=== PATIENT | female | born 1995 | race Caucasian/White ===

== ENCOUNTER 2024-01-24 18:14 | Emergency (ER) | payer OTHER, SELFPAY ==
--- NOTE | ~2024-01-24 | US_ITS ---
EXAMINATION: US VENOUS WITH DOPPLER UPPER EXTREMITY, RIGHT CLINICAL INFORMATION: Right arm swelling COMPARISON: None available. TECHNIQUE: Ultrasound of the upper extremity is performed using compression sonography and color and pulse Doppler flow with assessment of augmentation of flow. There is also imaging and Doppler assessment of the jugular and subclavian veins. Spectral analysis with color-flow imaging is performed. FINDINGS: Respiratory variation, normal compression, and augmented flow are noted throughout the upper extremity including the axillary, brachial, cubital, and radial and ulnar veins. There is normal flow in the internal jugular and subclavian veins. There is no visible deep or superficial thrombophlebitis. If the patient's symptoms progress, a followup ultrasound in 5 -7 days might be of value to exclude proximal propagation from a nonvisualized distal arm vein. US/US venous duplex UE RT IMPRESSION: No DVT demonstrated in the right upper extremity.
--- NOTE | ~2024-01-24 | CT_ITS ---
EXAMINATION: CT ANGIOGRAM RIGHT UPPER EXTREMITY CLINICAL INFORMATION: Pain, swelling COMPARISON: None available. TECHNIQUE: CT angiography of the right upper extremity following the administration of 80mL Omnipaque 350. MIPS images were created and reviewed. This CT examination was performed using dose optimization techniques as appropriate, variously including the following: *Automated exposure control *Adjustment of mA and/or kV according to patient size (this includes techniques or standardized protocols for targeted exams where dose is matched to indication/reason for exam; i.e. extremities or head) *Use of iterative reconstruction technique DLP: 632 mGy-cm FINDINGS: Vascular: The subclavian, axillary, brachial, proximal ulnar, proximal radial arteries are patent and unremarkable. The ulnar and radial arteries are not visualized past the proximal-mid forearm. Non vascular: There is diffuse subcutaneous soft tissue swelling of the forearm. CT/CT angio UE RT IMPRESSION: The ulnar and radial arteries are not visualized past the proximal-mid forearm. Patent proximally without abnormality.
--- NOTE | ~2024-01-24 | CT_ITS ---
EXAMINATION: CT CHEST WITH CONTRAST CLINICAL INFORMATION: Possible right subclavian clot COMPARISON: None available. TECHNIQUE: Multidetector volumetric CT imaging of the chest was obtained after the administration of 85 mL of Omnipaque 350 intravenous contrast without immediate adverse reactions. Axial MIP volume rendering provided. Sagittal and coronal reformatted images were obtained. This CT examination was performed using dose optimization techniques as appropriate, variously including the following: *Automated exposure control *Adjustment of mA and/or kV according to patient size (this includes techniques or standardized protocols for targeted exams where dose is matched to indication/reason for exam; i.e. extremities or head) *Use of iterative reconstruction technique DLP: 219 mGy-cm FINDINGS: LUNGS: The lungs are clear with no evidence of inflammation or nodules. VASCULAR: The thoracic aorta appears unremarkable. Three-vessel branching pattern of the arch is seen. The great vessels are widely patent. Although not carried out for the pulmonary arteries or pulmonary veins are moderately well seen. No central pulmonary emboli are present. MEDIASTINUM: The mediastinum is normal. PLEURA: There is no pleural effusion. No pleural mass or thickening. AXILLA: No lymphadenopathy. UPPER ABDOMEN: Unremarkable OSSEOUS STRUCTURES: Unremarkable. CT/CT chest w IV con IMPRESSION: 1. No evidence of a right subclavian thrombus. The right subclavian artery is widely patent. 2. No acute intrathoracic disease. Fleischner guidelines were followed.
[2024-01-24 18:16] VITALS: BP 153/94; PULSE 93; RESP 18; TEMP 36.9; O2SAT 100; BMI 27.5
--- NOTE | 2024-01-24 18:19 | ED.GENADULT ---
HPI - General Adult General Chief complaint: Extremity Problem Stated complaint: R arm swelling and tightness, DVT? Time Seen by Provider: 01/24/24 18:39 Source: patient Mode of arrival: wheelchair Limitations: no limitations History of Present Illness ED Provider: Dr. Kirk Martinez HPI narrative: 28-year-old female with a history of asthma, depression, anxiety, ADD who presents emergency department for evaluation of pain and swelling of her right arm. 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 She states that the next day her biceps felt tight and she noticed a purplish discoloration. She states that her whole arm now feels swollen and tight and is discolored compared to the left arm. She states she is having pain in her arm but she describes it as a mild dull ache which is only 2/10. The patient denied fever, chills, fatigue, chest pain, shortness of breath. The patient does take oral control pills Related Data Allergies Allergy/AdvReac Type Severity Reaction Status Date / Time No Known Allergies Allergy Verified 01/24/24 18:20 Review of Systems Review of Systems: Yes all other systems are reviewed and are negative [facility] Past Medical History [facility] Narrative: Past medical history: Asthma, depression, anxiety, ADD. Social history: She denies tobacco use. She occasionally drinks alcohol. She smokes marijuana once daily Social History Social History Advance Directives: No Advance Directives Information Provided: No Do you have a plan to hurt others: No Plan Physical Exam ED Vital Signs: Vital Signs - 24 hr 01/24/24 18:16 01/24/24 19:42 01/24/24 22:06 Temperature 98.4 F 98.5 F 98.6 F Pulse Rate 93 89 73 Respiratory Rate 18 18 16 Blood Pressure 153/94 H 156/86 H 134/79 Pulse Oximetry 100 99 99 Oxygen Delivery Method Room Air Room Air Room Air BMI result Body Mass Index 27.5 Vital signs revealed an elevated blood pressure of 153/94 otherwise unremarkable. Exam: General: Awake, alert in no distress Head: Normocephalic, atraumatic EENT: PERRL, Lids normal, sclera normal, conjunctiva normal, nose normal , ears normal, throat without erythema or exudates Neck: Supple, no adenopathy Lung: breath sounds symmetric, no wheezing, rales or rhonchi Chest: symmetric movement Heart: regular rate and rhythm, normal S1, S2 no murmurs or rubs Abdomen: soft, non-tender, nondistended, normal bowel sounds Back:no CVAT Extremities: Right upper extremity: The patient's right upper extremity is larger than the left, she has a purplish discoloration from the shoulder to the hand, she has normal radial and ulnar pulse. There is some slight tenderness palpation over the right biceps and triceps, there has no increased warmth or erythema of the extremity. Neuro: Awake, alert, oriented, normal speech Psych: Pleasant, cooperative Course Course Course Narrative: RME- 28-year-old female with past medical history significant for asthma presents for evaluation of right arm pain and swelling. Patient 1st noticed it today. She reports working in the yard yesterday and felt some shoulder discomfort last night which has since resolved. Her right arm is edematous, she has some discomfort in the triceps region. There is some discoloration to the right upper extremity. Radial pulses are 2+ and equal. Capillary refill intact. Plan for labs coags an ultrasound to rule out DVT Medications Administered Discontinued Medications Generic Name Dose Route Start Last Admin Trade Name Freq PRN Reason Stop Dose Admin Piperacillin Sod/Tazobactam 100 mls @ 200 mls/hr 01/24/24 19:23 01/24/24 21:17 Sod 4.5 gm/ Sodium Chloride IV 01/24/24 19:52 Infused ONCE ONE Infusion Clindamycin Phosphate 600 mg in 50 mls @ 100 mls/hr 01/24/24 19:23 01/24/24 21:17 Cleocin IV 01/24/24 19:52 100 mls/hr ONCE ONE Administration Sodium Chloride 1,000 mls @ 999 mls/hr 01/24/24 21:53 01/24/24 22:40 Ns IV 01/24/24 22:53 999 mls/hr .Q1H1M STA Administration Iohexol 80 ml 01/24/24 20:26 01/24/24 20:27 Iohexol 350 Mg/Ml 100 Ml Infus..Btl IV 01/24/24 20:27 80 ml ONCE ONE Administration Iohexol 85 ml 01/24/24 22:05 01/24/24 22:06 Iohexol 350 Mg/Ml 100 Ml Infus..Btl IV 01/24/24 22:06 85 ml ONCE ONE Administration Medical Decision Making Medical Decision Making MDM Narrative: 28-year-old female with a history of asthma, depression, anxiety, ADD who presents emergency department for evaluation of pain and swelling of her right arm x3 days with increased swelling, purplish discoloration and mild pain from the shoulder to the hand. Patient does not recount any injury or puncture wound to her right arm. Patient is on control pills. Vital signs did reveal an elevated blood pressure otherwise unremarkable. The patient's exam did reveal swelling of the right upper extremity compared to the left with a purplish discoloration with no increased warmth. She has good peripheral pulses. Differential diagnosis: ?Includes but is not limited to DVT, arterial clot, necrotizing fasciitis, hematoma, electrolyte abnormalities, anemia Following evaluation was ordered:. CBC, CMP, CK, D-dimer, magnesium, PTT, lactic acid, CRP, ESR, urine test, blood cultures x2, venous duplex ultrasound of the right upper extremity Course: 20:16 My interpretation patient's laboratory evaluation is as follows: [place] [id number] and a normal differential. D-dimer was elevated 311. CO2 low 20, BUN elevated 17, LFTs were normal. CK was only slightly elevated at 214. CRP elevated 1.21. Urine test was negative. ESR was normal at 11. Duplex ultrasound of the right upper extremity did not reveal a DVT. I ordered a CT scan angiogram of the right upper extremity to rule out arterial clot is possible cause of her symptoms. I did order Zosyn 4.5 g IV and clindamycin 600 mg IV to treat for possible necrotizing fasciitis/infectious process. 21:[address] angiogram of the right upper extremity did not reveal any cleared arterial blockage, the arterial study ends in the forearm and I did discuss this with the covering radiologist . She states that this result is and artifact of the technique and not secondary to an arterial clot. I am still concerned that the patient may have a venous clot and after my discussion with the covering radiologist, I ordered CT of the chest with IV contrast to evaluate the subclavian vein to see if there is a clot higher up in her venous system. I did order normal saline IV x2 L to flush under her kidneys. At the end of my shift, the CT scan of the chest is pending in the patient's care was turned over to my colleague, Dr. Lebron Diop. 23:14 Patient is seen and re-evaluated comes here for gradual onset of right upper extremity swelling and pain with slight discomfort after cleaning at home mild chemical good peripheral pulses patient had a detailed workup including CTA chest CT angio of the right upper extremity and Doppler which was negative CPK slightly elevated to 214 C-reactive protein 1.21 D-dimer 311, rest of the labs are normal patient likely had musculoskeletal pain of the cause for the swelling/microvascular disease for slight cold feeling of the right patient denied any Raynaud's phenomenon no history of lupus. 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 01/24/24 19:49 01/24/24 19:49 Labs: Lab Results 01/24/24 01/24/24 01/24/24 Range/Units 19:49 19:49 19:49 WBC 10.4 (4.8-10.8) X10*3/uL RBC 4.54 (4.20-5.50) X10*6/uL Hgb 13.9 (12.0-16.0) g/dl Hct 40.5 (37.0-47.0) % MCV 89.2 (80.0-98.0) fL MCH 30.6 (27.0-33.0) pg MCHC 34.3 (31.0-35.0) g/dl RDW 12.5 (11.0-16.0) % Plt Count 262 (160-400) X10*3/uL MPV 10.0 (9.4-12.3) fL Immature Gran % (Auto) 0.3 (0.0-0.4) % Neut % (Auto) 55.9 (45-73) % Lymph % (Auto) 32.2 (20-40) % Churchill % (Auto) 7.4 (2-11) % Eos % (Auto) 3.5 (0-4) % Baso % (Auto) 0.7 (0-2) % Lymph # (Auto) 3.4 (1.2-4.9) X10*3/uL Churchill # (Auto) 0.8 (0.1-1.2) X10*3/uL Eos # (Auto) 0.4 (0.0-0.4) X10*3/uL Baso # (Auto) 0.1 (0.0-0.2) X10*3/uL Abs Immat Gran (auto) 0.03 (0.00-0.03) X10*3/uL Absolute Neuts (auto) 5.8 (2.0-8.3) x10*3/uL Absolute Nucleated RBC 0.000 (0.0-0.012) X10*3/uL Nucleated RBC % (auto) 0.0 (0.0-0.2) /100WBC ESR 11 (0-20) MM/HR PT 11.6 (11.1-13.3) SEC INR 1.0 (0.9-1.1) APTT 26.5 (26.0-36.8) SEC D-Dimer High Sensitivty 311 NG/ML Sodium 138 (135-145) mmol/L Potassium 3.7 (3.3-5.1) mmol/L Chloride 104 (96-108) mmol/L Carbon Dioxide 20 L (22-29) mmol/L Anion Gap 18 (12-20) BUN 17 H (9-16) mg/dL Creatinine 0.80 (0.5-1.4) mg/dL Estim Creat Clear Calc 93.8 Estimated GFR > 60 Random Glucose 80 (60-115) mg/dL Lactic Acid 0.8 (0.5-2.0) mmol/L Calcium 9.7 (8.4-10.2) mg/dL Magnesium 2.2 Cancelled (1.6-2.6) mg/dL Total Bilirubin 0.4 (0.0-1.0) mg/dL AST 27 (5-31) U/L ALT 19 (0-31) U/L Alkaline Phosphatase 46 (39-117) U/L Total Creatine Kinase 214 H Cancelled (26-140) U/L C-Reactive Protein 1.21 H (< or = 0.50) mg/dL Total Protein (6.5-8.0) g/dL Albumin (3.5-5.0) g/dL Lipase (8-78) U/L Urine Test (NEGATIVE) 01/24/24 Range/Units 19:49 WBC (4.8-10.8) X10*3/uL RBC (4.20-5.50) X10*6/uL Hgb (12.0-16.0) g/dl Hct (37.0-47.0) % MCV (80.0-98.0) fL MCH (27.0-33.0) pg MCHC (31.0-35.0) g/dl RDW (11.0-16.0) % Plt Count (160-400) X10*3/uL MPV (9.4-12.3) fL Immature Gran % (Auto) (0.0-0.4) % Neut % (Auto) (45-73) % Lymph % (Auto) (20-40) % Churchill % (Auto) (2-11) % Eos % (Auto) (0-4) % Baso % (Auto) (0-2) % Lymph # (Auto) (1.2-4.9) X10*3/uL Churchill # (Auto) (0.1-1.2) X10*3/uL Eos # (Auto) (0.0-0.4) X10*3/uL Baso # (Auto) (0.0-0.2) X10*3/uL Abs Immat Gran (auto) (0.00-0.03) X10*3/uL Absolute Neuts (auto) (2.0-8.3) x10*3/uL Absolute Nucleated RBC (0.0-0.012) X10*3/uL Nucleated RBC % (auto) (0.0-0.2) /100WBC ESR (0-20) MM/HR PT (11.1-13.3) SEC INR (0.9-1.1) APTT (26.0-36.8) SEC D-Dimer High Sensitivty NG/ML Sodium (135-145) mmol/L Potassium (3.3-5.1) mmol/L Chloride (96-108) mmol/L Carbon Dioxide (22-29) mmol/L Anion Gap (12-20) BUN (9-16) mg/dL Creatinine (0.5-1.4) mg/dL Estim Creat Clear Calc Estimated GFR Random Glucose (60-115) mg/dL Lactic Acid (0.5-2.0) mmol/L Calcium (8.4-10.2) mg/dL Magnesium (1.6-2.6) mg/dL Total Bilirubin (0.0-1.0) mg/dL AST (5-31) U/L ALT (0-31) U/L Alkaline Phosphatase (39-117) U/L Total Creatine Kinase (26-140) U/L C-Reactive Protein Cancelled (< or = 0.50) mg/dL Total Protein 8.2 H (6.5-8.0) g/dL Albumin 4.4 (3.5-5.0) g/dL Lipase 34 (8-78) U/L Urine Test NEGATIVE (NEGATIVE) Radiology Impression Discussion of test interpretation with radiology: I have reviewed the radiologist's reading. Radiologist Impression: CT angio UE RT IMPRESSION: The ulnar and radial arteries are not visualized past the proximal-mid forearm. Patent proximally without abnormality. Dictated By: Genet Lafleur MD Independent Historian Clinical information obtained from an independent historian. History obtained from or confirmed by: Other (Patient's friend, Melida, who is a nurse here in the emergency department) Critical Care Time Critical Care Time Critical Care Time: Yes Total Critical Care Time: 35 Attestation: Critical Care: The patient was critically ill with a high probability of imminent or life threatening deterioration. I spent greater than 30 minutes of discontinuous time evaluating the patient,delivering critical care at the bedside, discussing and evaluating pertinent data with consultants. Critical care time does not include time spent performing separately billable procedures or teaching. Total time spent performing critical care was 35 minutes. Discharge Plan Discharge Clinical Impression: Pain and swelling of right upper extremity Patient Disposition: Home, Self-Care Instructions: Musculoskeletal Pain (ED) Additional Instructions: Cause of your pain and swelling of the right extremity is not clear Likely have microvascular disease No blood clot noticed Take baby aspirin daily Follow-up with PCP/nail polish brush machine feeder Print Language: [place] Islander
[2024-01-24 19:42] VITALS: BP 156/86; PULSE 89; RESP 18; TEMP 36.9; O2SAT 99
[2024-01-24 19:55] LABS: MANUAL DIFF FLAG NO
[2024-01-24 19:57] LABS: Basophils Absolute Auto 0.1 X10*3/uL (0.0-0.2); Basophils Percent Auto 0.7 % (0-2); Eosinophils Absolute Auto 0.4 X10*3/uL (0.0-0.4); Eosinophils Percent Auto 3.5 % (0-4); Hematocrit 40.5 % (37.0-47.0); Hemoglobin 13.9 g/dl (12.0-16.0); Imm Gran Abs Auto 0.03 X10*3/uL (0.00-0.03); Imm Gran Pct Auto 0.3 % (0.0-0.4); Lymphocytes Absolute Auto 3.4 X10*3/uL (1.2-4.9); Lymphocytes Percent Auto 32.2 % (20-40); Mean Corpuscular HGB Conc 34.3 g/dl (31.0-35.0); Mean Corpuscular Hemoglobin 30.6 pg (27.0-33.0); Mean Corpuscular Volume 89.2 fL (80.0-98.0); Monocytes Absolute Auto 0.8 X10*3/uL (0.1-1.2); Monocytes Percent Auto 7.4 % (2-11); Neutrophils Absolute Auto 5.8 x10*3/uL (2.0-8.3); Neutrophils Percent Auto 55.9 % (45-73); Platelet Count 262 X10*3/uL (160-400); Red Blood Count 4.54 X10*6/uL (4.20-5.50); Red Cell Distribution Width 12.5 % (11.0-16.0); White Blood Count 10.4 X10*3/uL (4.8-10.8)
[2024-01-24 19:59] LABS: UPreg QC Valid YES; Urine Pregnancy NEGATIVE (NEGATIVE)
--- NOTE | 2024-01-24 20:03 | MHC.EDTECH ---
This tech took over care of patient at 1900,hourly rounds and vitals completed, Labs,blood cultures,and urine obtained and sent to lab.
[2024-01-24 20:09] LABS: D Dimer High Sensitivity 311 NG/ML; Partial Thromboplastin Time 26.5 SEC (26.0-36.8)
[2024-01-24] MEDS: Piperacillin Sodium/Tazobactam 4.5 GM in 0.9 % Sodium Chloride 100 ML IV (20:09)
[2024-01-24 20:12] LABS: Lactic Acid 0.8 mmol/L (0.5-2.0)
[2024-01-24 20:19] LABS: Alanine Aminotransferase 19 U/L (0-31); Albumin Level 4.4 g/dL (3.5-5.0); Alkaline Phosphatase 46 U/L (39-117); Anion Gap 18 (12-20); Aspartate Amino Transferase 27 U/L (5-31); Bilirubin Total 0.4 mg/dL (0.0-1.0); Blood Urea Nitrogen 17 mg/dL (9-16); C Reactive Protein 1.21 mg/dL (< or = 0.50); Calcium 9.7 mg/dL (8.4-10.2); Carbon Dioxide 20 mmol/L (22-29); Chloride 104 mmol/L (96-108); Creatinine Clr Calc Pharmacy 93.8; Estimated Glomerular Filt Rate > 60; Glucose Random 80 mg/dL (60-115); Lipase 34 U/L (8-78); Magnesium 2.2 mg/dL (1.6-2.6); Potassium 3.7 mmol/L (3.3-5.1); Sodium 138 mmol/L (135-145); Total Protein 8.2 g/dL (6.5-8.0)
[2024-01-24] MEDS: iohexoL 350 MG/ML 100 ML INFUS..BTL 80 ML IV (20:27)
[2024-01-24 21:05] LABS: Prothrombin Time 11.6 SEC (11.1-13.3)
[2024-01-24] MEDS: Clindamycin Phosphate/D5W 600 MG/50 ML PIGGYBACK 100 MG IV (21:17)
[2024-01-24 21:41] LABS: Erythrocyte Sedimentation Rate 11 MM/HR (0-20)
[2024-01-24 22:06] VITALS: BP 134/79; PULSE 73; RESP 16; TEMP 37; O2SAT 99
[2024-01-24] MEDS: iohexoL 350 MG/ML 100 ML INFUS..BTL 85 ML IV (22:06)
[2024-01-24] MEDS: 0.9 % Sodium Chloride 1,000 ML 999 ML IV (22:40)
[2024-01-24 23:18] VITALS: BP 127/80; PULSE 69; RESP 18; TEMP 37; O2SAT 100
--- NOTE | 2024-01-24 23:21 | MHC.EDTECH ---
Hourly rounds and vitals completed,patient is resting comfortably at this time,awaiting discharge at this time.
[2024-01-24] MEDS: Aspirin Enteric Coated 81 MG TABLET.DR PO (23:41)
[2024-01-24 23:47] VITALS: BP 127/80; PULSE 69; RESP 18; TEMP 37; O2SAT 100
== END 2024-01-24 23:48 | disposition home or self-care (01) ==
PROVIDERS: Emergency Medicine Emergency Medical Services; Physician Assistant; Emergency Provider Internal Medicine
DX: M79.601 Pain in right arm (principal); J45.909 Unspecified asthma, uncomplicated; M79.89 Other specified soft tissue disorders
CPT/HCPCS: 36415; 71260; 73206; 80053; 81025; 82550; 83605; 83690; 83735; 85025; 85379; 85610; 85652; 85730; 86140; 87040; 93971; 96365; 96367; 99284; J0736; J2543; Q9967

== ENCOUNTER 2024-01-25 13:58 | Outpatient (AMB) | payer OTHER, SELFPAY ==
--- NOTE | 2024-01-25 14:04 | A.OFFVIS_ITS ---
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 Pt states dull achey pain. Had CT R UE and R/O DVT R UE. 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 She noted it was discolored yesterday. She actually presented to the emergency room and underwent a venous duplex along with CT angiogram. She reports that it did well last night and this morning she woke and it seemed a little bit worse. She was concerned and requested a office visit with us. Upon discussion with her she denies any trauma or injury to that right upper extremity. She is never experienced these issues before. She is a nonsmoker nondiabetic. Upon further discussion she did notice that it was a little bit more frequent especially the right upper extremity as she noticed the recent weather change as the temperature has significantly increased over the last week or so. She drinks approximately 1 to 2 cups of coffee daily. She does note some recent life stressors including work, and future marriage. She reports normal motor and sensation of bilateral upper extremities. She is now for vascular follow-up. Review of Systems Const All systems reviewed & are unremarkable except as noted in HPI and below Reports no additional complaints ENT Reports Normal hearing present Card Denies chest pain, Denies chest pain at rest, Denies chest pain with activity and Denies pedal edema Resp Denies cough GI Denies abdominal pain Musc Denies abnormal gait, Denies muscle cramps and Denies radiating pain into limb Skin/Breast Denies skin ulcer and Denies wounds Neuro Reports Normal hearing present and Denies abnormal gait Psych Reports no additional complaints Physical Exam Const General: cooperative, healthy appearing and comfortable Orientation/consciousness: oriented to person, oriented to place and oriented to time HEENT Head: Yes normal to inspection Neck Neck: Yes normal visual inspection Carotids: no bruits Chest Chest palpation & inspection: normal inspection of the chest Resp Effort & Inspection: normal respiratory effort and able to speak in complete sentences Auscultation: clear to auscultation bilaterally, no crackles, no rales, no rhonchi and no wheezes Cardio Other: Palpable bilateral upper extremity brachial radial and ulnar pulses Rate: regular rate Rhythm: regular rhythm Heart sounds: S1 normal heart sound present and S2 normal heart sound present Bruits: no carotid bruits Peripheral pulses: Peripheral pulses 2+ throughout GI Inspection: Yes normal to inspection Skin Wounds: no wounds Hair: normal Neuro General: oriented to person, oriented to place and oriented to time Cranial nerves: Yes CN's II-XII intact bilaterally and Yes Normal hearing present Cognition (Neuro): normal cognition Motor exam (neuro): 5/5 motor strength present throughout Extrem Other: Normal motor and strength of bilateral upper extremities. Discolored digits right greater than left. General: No clubbing, No cyanosis and No edema Psych Appearance: grossly normal Mental Status: mental status grossly normal Speech and movement: Normal speech and movement present Assessment & Plan Assessment & Plan (1) Raynaud's disease without gangrene: Code(s): I73.00 - Raynaud's syndrome without gangrene Category: Medical Plan: In short patient has discoloration the upper extremities. It is right greater than left. I do not believe that this is a strict vascular issue as she has palpable arterial pulses in addition yesterday's venous testing was negative. I do believe she has an element of Raynaud's. I have discussed the pathophysiology with the patient, inclusive of spasming of the vessels and change in color of digits from white, red, and blue. We have discussed prevention inclusive of protection hand and feet at all times, reduction of caffeine intake, and reduction of stressors. At the current time the patient appears to be stable. I have taken the liberty of starting her on a calcium channel josette of nifedipine 10 mg. Should this persist may need follow-up with Rheumatology and use a calcium channel josette. The patient will follow up with us in approximately 1 month Medications: New nifedipine 10 mg PO DAILY 30 caps 0RF Coding Level of Care Code New Pt Level 4 (74213) Diagnoses Raynaud's disease without gangrene I73.00
== END 2024-01-25 14:37 | disposition home or self-care (01) ==
LOC: HO.HVS 13:58
PROVIDERS: Visit Provider Surgery Vascular Surgery
DX: I73.00 Raynaud's syndrome without gangrene (principal)
CPT/HCPCS: 99204

== ENCOUNTER → 2024-01-25 13:58 | Outpatient (BNVA) | payer OTHER, SELFPAY | PROVIDERS: Visit Provider Surgery Vascular Surgery | DX: I73.00 Raynaud's syndrome without gangrene (principal) | CPT/HCPCS: 99202 ==